=== PATIENT | female | born 1955 | race African-American/Black ===

== ENCOUNTER 2019-05-13 05:27 | Inpatient (IN) | payer MEDICAID ==
[~2019-05-13] VITALS: Ht 160 cm; Wt 50.7 kg
[~2019-05-13 05:27] MED LIST: AMLO2.5T4 PO; ASPI-728 PO; ATOR20TA86 PO; CLOP75TA3 PO; IPRA4AER IH; LEVO750T21 PO; LISI-662 PO; METO25 PO; PANT40TA25 PO
[2019-05-13] MEDS ORDERED: IPRATROPIUM BROMIDE 0.5 MG/2.5 ML NEB SOLUTION NEB ONE ×2 (05:45→08:15)
[2019-05-13] MEDS ORDERED: ALBUTEROL SULFATE 2.5 MG/0.5 ML NEB SOLUTION NEB ONE ×3 (05:45→10:15)
[2019-05-13 07:09] LABS: EOSINOPHILS % (AUTO) 0.4 % (1.0-6.0); HEMATOCRIT 38.4 % (36-46); HEMOGLOBIN 13.1 g/dL (12.0-16.0); LYMPHOCYTES # (AUTO) 0.5 K/uL (1.0-4.8); MEAN CORPUSCULAR HEMOGLOBIN 31.9 pg (26.0-34.0); MEAN CORPUSCULAR HGB CONC 34.1 G/dL (31.0-37.0); MEAN CORPUSCULAR VOLUME 94 fL (80-100); MONOCYTES # (AUTO) 0.5 K/uL (0.1-1.0); MONOCYTES % (AUTO) 11.9 % (2.0-9.0); NEUTROPHILS # (AUTO) 2.8 K/uL (1.8-7.7); NEUTROPHILS % (AUTO) 72.7 % (40.0-70.0); PLATELET COUNT (AUTO) 326 K/uL (150-450); RED CELL DISTRIBUTION WIDTH 16.5 % (11.5-14.5)
[2019-05-13 07:46] LABS: ALANINE AMINOTRANSFERASE 23 U/L (12-78); ALBUMIN 3.6 g/dL (3.4-5.0); ALKALINE PHOSPHATASE 155 U/L (46-116); ANION GAP 12 mmol/L (8-16); ASPARTATE AMINOTRANSFERASE 35 U/L (15-37); B-TYPE NATRIURETIC PEPTIDE 133 pg/mL (0-100); BILIRUBIN,TOTAL 0.5 mg/dL (0.1-1.0); CALCIUM, TOTAL 9.3 mg/dL (8.8-10.5); CARBON DIOXIDE 24 mmol/L (22-29); CHLORIDE 97 mmol/L (98-107); CREATININE 0.77 mg/dL (0.60-1.30); FREE T4 (FREE THYROXINE) 1.14 ng/dL (0.76-1.46); GLOMERULAR FILTR. RATE CALC > 60 mL/min (>60); GLUCOSE,RANDOM 103 mg/dL (70-110); SODIUM SERUM 133 mmol/L (136-145); TOTAL PROTEIN, SERUM 7.9 g/dL (6.4-8.2); UREA NITROGEN, BLOOD 14 mg/dL (7-18)
[2019-05-13] MEDS ORDERED: MethylPREDNISolone SOD SUCC 125 MG/2 ML VIAL IVP ONE (08:15)
[2019-05-13] MEDS ORDERED: IOVERSOL 350 MG/ML 100 ML VIAL ONE (08:17)
[2019-05-13] MEDS ORDERED: SODIUM CHLORIDE 0.9% 100 ML ONE (08:17)
[2019-05-13 08:58] LABS: INFLUENZA TYPE A NEGATIVE FOR TYPE A (NEGATIVE); INFLUENZA TYPE B NEGATIVE FOR TYPE B (NEGATIVE)
[2019-05-13] MEDS ORDERED: 0.9% SODIUM CHLORIDE 10 ML SYRINGE IVP PRN (10:15)
[2019-05-13] MEDS ORDERED: ACETAMINOPHEN 325 MG TABLET PO PRN ×2 (10:15→15:45)
[2019-05-13] MEDS ORDERED: ONDANSETRON HCL 4 MG/2 ML VIAL IVP PRN ×2 (10:15→15:45)
[2019-05-13] MEDS ORDERED: ALBUTEROL SULFATE 5 MG/ML 20 ML NEB SOLN [BULK] NEB ONE (10:30)
[2019-05-13] MEDS ORDERED: HydrALAZINE HCL 10 MG TABLET PO ONE (12:00)
[2019-05-13] MEDS ORDERED: POTASSIUM CHLORIDE 20 MEQ ER TABLET PO ONE (12:00)
[2019-05-13 12:49] VITALS: BP 134/74
[2019-05-13 15:35] VITALS: BP 137/77
[2019-05-13] MEDS ORDERED: ALBUTEROL SULFATE 2.5 MG/0.5 ML NEB SOLUTION NEB PRN (15:45)
[2019-05-13] MEDS ORDERED: MORPHINE SULFATE 2 MG/ML SYRINGE IVP PRN (15:45)
[2019-05-13] MEDS ORDERED: IPRATROPIUM BROMIDE 0.5 MG/2.5 ML NEB SOLUTION NEB PRN (15:45)
[2019-05-13] MEDS ORDERED: BISACODYL 10 MG RECTAL RECTAL SUPPOSITORY PR PRN (15:45)
[2019-05-13] MEDS ORDERED: ZOLPIDEM TARTRATE 5 MG TABLET PO PRN (15:45)
[2019-05-13] MEDS ORDERED: MAGNESIUM HYDROXIDE SUSPENSION 30 ML UDCUP PO PRN (15:45)
[2019-05-13] MEDS ORDERED: OxyCODONE HCL/ACETAMINOPHEN 5-325 MG TABLET PO PRN (15:45)
[2019-05-13] MEDS: MethylPREDNISolone SOD SUCC 125 MG/2 ML VIAL IVP SCH ×2 (17:09→23:13)
[2019-05-13] MEDS: HEPARIN SODIUM,PORCINE 5,000 UNITS/ML VIAL SQ SCH ×2 (17:09→23:14)
[2019-05-13] MEDS: ALBUTEROL SULFATE 2.5 MG/0.5 ML NEB SOLUTION NEB SCH ×2 (20:09→23:16)
[2019-05-13] MEDS: IPRATROPIUM BROMIDE 0.5 MG/2.5 ML NEB SOLUTION NEB SCH ×2 (20:09→23:16)
[2019-05-13 21:15] VITALS: BP 156/84
[2019-05-13] MEDS: METOPROLOL TARTRATE 25 MG TABLET PO SCH (21:16)
[2019-05-13] MEDS: DOCUSATE SODIUM 100 MG CAPSULE PO SCH (21:16)
[2019-05-14] VITALS (7 sets, daily range): BP systolic 147–161; BP diastolic 76–91
[2019-05-14] MEDS: ALBUTEROL SULFATE 2.5 MG/0.5 ML NEB SOLUTION NEB SCH ×6 (04:03→23:21)
[2019-05-14] MEDS: IPRATROPIUM BROMIDE 0.5 MG/2.5 ML NEB SOLUTION NEB SCH ×6 (04:03→23:21)
[2019-05-14] MEDS: MethylPREDNISolone SOD SUCC 125 MG/2 ML VIAL IVP SCH ×4 (06:34→23:34)
[2019-05-14] MEDS: LISINOPRIL 20 MG TABLET PO SCH (08:28)
[2019-05-14] MEDS: PANTOPRAZOLE SODIUM 40 MG DR TABLET PO SCH (08:28)
[2019-05-14] MEDS: DOCUSATE SODIUM 100 MG CAPSULE PO SCH ×2 (08:29→20:14)
[2019-05-14] MEDS: ASPIRIN 81 MG CHEWABLE TABLET PO SCH (08:29)
[2019-05-14] MEDS: ATORVASTATIN CALCIUM 20 MG TABLET PO SCH (08:29)
[2019-05-14] MEDS: METOPROLOL TARTRATE 25 MG TABLET PO SCH ×2 (08:29→20:13)
[2019-05-14] MEDS: CLOPIDOGREL BISULFATE 75 MG TABLET PO SCH (08:29)
[2019-05-14] MEDS: HEPARIN SODIUM,PORCINE 5,000 UNITS/ML VIAL SQ SCH ×3 (08:30→23:34)
[2019-05-14] MEDS: AmLODIPine BESYLATE 2.5 MG TABLET PO SCH (14:14)
[2019-05-14] MEDS: GuaiFENesin/D-METHORPHAN [SUGAR-FREE] 200-20MG/10 ML SYRUP UDCUP PO PRN (14:30)
[2019-05-14] MEDS ORDERED: INFLUENZA VIRUS VACCINE QVS 2019-20 (3YR+)/PF 60 MCG/0.5 ML SYRINGE IM ONE (19:15)
[2019-05-14] MEDS ORDERED: -PHARMACY VACCINE NOTE- MISC ONE (19:15)
[2019-05-15] MEDS: IPRATROPIUM BROMIDE 0.5 MG/2.5 ML NEB SOLUTION NEB SCH ×5 (03:06→20:12)
[2019-05-15] MEDS: ALBUTEROL SULFATE 2.5 MG/0.5 ML NEB SOLUTION NEB SCH ×5 (03:06→20:12)
[2019-05-15 04:00] VITALS: BP 149/86
[2019-05-15] MEDS: GuaiFENesin/D-METHORPHAN [SUGAR-FREE] 200-20MG/10 ML SYRUP UDCUP PO PRN ×2 (05:59→22:39)
[2019-05-15] MEDS: MethylPREDNISolone SOD SUCC 125 MG/2 ML VIAL IVP SCH ×4 (06:00→23:55)
[2019-05-15] MEDS: HEPARIN SODIUM,PORCINE 5,000 UNITS/ML VIAL SQ SCH ×3 (08:01→23:55)
[2019-05-15] MEDS: DOCUSATE SODIUM 100 MG CAPSULE PO SCH ×2 (08:01→20:36)
[2019-05-15] MEDS: ATORVASTATIN CALCIUM 20 MG TABLET PO SCH (08:01)
[2019-05-15] MEDS: AmLODIPine BESYLATE 2.5 MG TABLET PO SCH (08:03)
[2019-05-15] MEDS: CLOPIDOGREL BISULFATE 75 MG TABLET PO SCH (08:03)
[2019-05-15] MEDS: PANTOPRAZOLE SODIUM 40 MG DR TABLET PO SCH (08:03)
[2019-05-15] MEDS: METOPROLOL TARTRATE 25 MG TABLET PO SCH ×2 (08:03→20:36)
[2019-05-15] MEDS: ASPIRIN 81 MG CHEWABLE TABLET PO SCH (08:04)
[2019-05-15] MEDS: LISINOPRIL 20 MG TABLET PO SCH (08:05)
[2019-05-15 08:55] VITALS: BP 120/85
[2019-05-15 11:22] LABS: BASOPHILS % (AUTO) 0.1 % (0.0-2.0); EOSINOPHILS % (AUTO) 0.1 % (1.0-6.0); HEMOGLOBIN 12.6 g/dL (12.0-16.0); LYMPHOCYTES # (AUTO) 0.3 K/uL (1.0-4.8); LYMPHOCYTES % (AUTO) 2.4 % (22.0-44.0); MEAN CORPUSCULAR HEMOGLOBIN 30.9 pg (26.0-34.0); MEAN CORPUSCULAR HGB CONC 33.1 G/dL (31.0-37.0); MEAN CORPUSCULAR VOLUME 93 fL (80-100); MONOCYTES # (AUTO) 0.7 K/uL (0.1-1.0); MONOCYTES % (AUTO) 5.7 % (2.0-9.0); NEUTROPHILS # (AUTO) 11.6 K/uL (1.8-7.7); PLATELET COUNT (AUTO) 331 K/uL (150-450); RED BLOOD CELL COUNT(AUTO) 4.07 MIL/uL (4.00-5.20); RED CELL DISTRIBUTION WIDTH 16.5 % (11.5-14.5)
[2019-05-15 11:26] LABS: NEUTROPHILS % (AUTO) 91.7 % (40.0-70.0)
[2019-05-15 11:27] VITALS: BP 158/92
[2019-05-15 11:40] LABS: ANION GAP 9 mmol/L (8-16); CALCIUM, TOTAL 8.8 mg/dL (8.8-10.5); CARBON DIOXIDE 24 mmol/L (22-29); CHLORIDE 96 mmol/L (98-107); CREATININE 0.64 mg/dL (0.60-1.30); GLOMERULAR FILTR. RATE CALC > 60 mL/min (>60); GLUCOSE,RANDOM 130 mg/dL (70-110); SODIUM SERUM 129 mmol/L (136-145); UREA NITROGEN, BLOOD 13 mg/dL (7-18)
[2019-05-15 11:45] LABS: ALANINE AMINOTRANSFERASE 20 U/L (12-78); ALBUMIN 3.4 g/dL (3.4-5.0); ALKALINE PHOSPHATASE 133 U/L (46-116); ASPARTATE AMINOTRANSFERASE 32 U/L (15-37); BILIRUBIN,TOTAL 0.4 mg/dL (0.1-1.0); TOTAL PROTEIN, SERUM 7.4 g/dL (6.4-8.2)
[2019-05-15] MEDS: BENZONATATE 100 MG CAPSULE PO SCH ×3 (12:30→20:36)
[2019-05-15 15:59] VITALS: BP 132/82
[2019-05-15 20:38] VITALS: BP 170/99
[2019-05-16] VITALS (7 sets, daily range): BP systolic 118–165; BP diastolic 65–99
[2019-05-16] MEDS: ALBUTEROL SULFATE 2.5 MG/0.5 ML NEB SOLUTION NEB SCH ×7 (00:14→22:53)
[2019-05-16] MEDS: IPRATROPIUM BROMIDE 0.5 MG/2.5 ML NEB SOLUTION NEB SCH ×7 (00:14→22:53)
[2019-05-16] MEDS: MethylPREDNISolone SOD SUCC 125 MG/2 ML VIAL IVP SCH ×4 (06:01→22:56)
[2019-05-16 07:36] LABS: BASOPHILS % (AUTO) 0.1 % (0.0-2.0); EOSINOPHILS % (AUTO) 0.1 % (1.0-6.0); HEMOGLOBIN 13.5 g/dL (12.0-16.0); LYMPHOCYTES # (AUTO) 0.5 K/uL (1.0-4.8); LYMPHOCYTES % (AUTO) 4.5 % (22.0-44.0); MEAN CORPUSCULAR HEMOGLOBIN 31.6 pg (26.0-34.0); MEAN CORPUSCULAR HGB CONC 33.8 G/dL (31.0-37.0); MEAN CORPUSCULAR VOLUME 94 fL (80-100); MONOCYTES # (AUTO) 0.6 K/uL (0.1-1.0); MONOCYTES % (AUTO) 6.4 % (2.0-9.0); NEUTROPHILS # (AUTO) 8.9 K/uL (1.8-7.7); PLATELET COUNT (AUTO) 295 K/uL (150-450); RED BLOOD CELL COUNT(AUTO) 4.27 MIL/uL (4.00-5.20); RED CELL DISTRIBUTION WIDTH 16.4 % (11.5-14.5)
[2019-05-16 07:42] LABS: NEUTROPHILS % (AUTO) 88.9 % (40.0-70.0)
[2019-05-16 07:54] LABS: ALANINE AMINOTRANSFERASE 24 U/L (12-78); ALBUMIN 3.4 g/dL (3.4-5.0); ALKALINE PHOSPHATASE 137 U/L (46-116); ANION GAP 8 mmol/L (8-16); ASPARTATE AMINOTRANSFERASE 47 U/L (15-37); BILIRUBIN,TOTAL 0.4 mg/dL (0.1-1.0); CALCIUM, TOTAL 8.9 mg/dL (8.8-10.5); CARBON DIOXIDE 25 mmol/L (22-29); CHLORIDE 90 mmol/L (98-107); CREATININE 0.61 mg/dL (0.60-1.30); GLOMERULAR FILTR. RATE CALC > 60 mL/min (>60); GLUCOSE,RANDOM 116 mg/dL (70-110); POTASSIUM 4.2 mmol/L (3.5-5.1); TOTAL PROTEIN, SERUM 7.4 g/dL (6.4-8.2); UREA NITROGEN, BLOOD 12 mg/dL (7-18)
[2019-05-16 08:11] LABS: SODIUM SERUM 123 mmol/L (136-145)
[2019-05-16] MEDS: BENZONATATE 100 MG CAPSULE PO SCH ×3 (08:18→19:45)
[2019-05-16] MEDS: LISINOPRIL 20 MG TABLET PO SCH (08:18)
[2019-05-16] MEDS: ASPIRIN 81 MG CHEWABLE TABLET PO SCH (08:18)
[2019-05-16] MEDS: PANTOPRAZOLE SODIUM 40 MG DR TABLET PO SCH (08:18)
[2019-05-16] MEDS: ATORVASTATIN CALCIUM 20 MG TABLET PO SCH (08:18)
[2019-05-16] MEDS: AmLODIPine BESYLATE 2.5 MG TABLET PO SCH (08:18)
[2019-05-16] MEDS: METOPROLOL TARTRATE 25 MG TABLET PO SCH ×2 (08:18→19:45)
[2019-05-16] MEDS: CLOPIDOGREL BISULFATE 75 MG TABLET PO SCH (08:18)
[2019-05-16] MEDS: HEPARIN SODIUM,PORCINE 5,000 UNITS/ML VIAL SQ SCH ×3 (08:19→22:56)
[2019-05-16] MEDS: DOCUSATE SODIUM 100 MG CAPSULE PO SCH ×2 (08:19→19:45)
[2019-05-16] MEDS: GuaiFENesin/D-METHORPHAN [SUGAR-FREE] 200-20MG/10 ML SYRUP UDCUP PO PRN (10:00)
[2019-05-16] MEDS ORDERED: TOLVAPTAN 15 MG TABLET PO ONE (15:30)
[2019-05-17] MEDS ORDERED: DEXTROSE 5%-WATER 250 ML IV SCH ×2 (00:15)
[2019-05-17] MEDS ORDERED: DEXTROSE 5%-WATER 500 ML IV SCH (00:15)
[2019-05-17] MEDS: ALBUTEROL SULFATE 2.5 MG/0.5 ML NEB SOLUTION NEB SCH ×6 (02:44→22:45)
[2019-05-17] MEDS: IPRATROPIUM BROMIDE 0.5 MG/2.5 ML NEB SOLUTION NEB SCH ×6 (02:44→22:45)
[2019-05-17 05:24] VITALS: BP 132/77
[2019-05-17] MEDS: MethylPREDNISolone SOD SUCC 125 MG/2 ML VIAL IVP SCH ×5 (05:51→23:57)
[2019-05-17 07:39] VITALS: BP 132/72
[2019-05-17 07:58] LABS: BASOPHILS % (AUTO) 0.1 % (0.0-2.0); EOSINOPHILS % (AUTO) 0 % (1.0-6.0); HEMATOCRIT 39.1 % (36-46); HEMOGLOBIN 13.3 g/dL (12.0-16.0); LYMPHOCYTES # (AUTO) 0.4 K/uL (1.0-4.8); LYMPHOCYTES % (AUTO) 5.1 % (22.0-44.0); MEAN CORPUSCULAR HEMOGLOBIN 31.8 pg (26.0-34.0); MEAN CORPUSCULAR VOLUME 94 fL (80-100); MONOCYTES # (AUTO) 0.9 K/uL (0.1-1.0); MONOCYTES % (AUTO) 12.8 % (2.0-9.0); NEUTROPHILS # (AUTO) 5.8 K/uL (1.8-7.7); PLATELET COUNT (AUTO) 328 K/uL (150-450); RED BLOOD CELL COUNT(AUTO) 4.17 MIL/uL (4.00-5.20); RED CELL DISTRIBUTION WIDTH 16.4 % (11.5-14.5)
[2019-05-17] MEDS: HEPARIN SODIUM,PORCINE 5,000 UNITS/ML VIAL SQ SCH ×3 (08:07→23:56)
[2019-05-17 08:08] LABS: ALANINE AMINOTRANSFERASE 42 U/L (12-78); ALBUMIN 3.2 g/dL (3.4-5.0); ALKALINE PHOSPHATASE 127 U/L (46-116); ANION GAP 6 mmol/L (8-16); ASPARTATE AMINOTRANSFERASE 44 U/L (15-37); BILIRUBIN,TOTAL 0.2 mg/dL (0.1-1.0); CALCIUM, TOTAL 8.6 mg/dL (8.8-10.5); CARBON DIOXIDE 27 mmol/L (22-29); CHLORIDE 97 mmol/L (98-107); CREATININE 0.76 mg/dL (0.60-1.30); GLOMERULAR FILTR. RATE CALC > 60 mL/min (>60); GLUCOSE,RANDOM 144 mg/dL (70-110); POTASSIUM 3.8 mmol/L (3.5-5.1); SODIUM SERUM 130 mmol/L (136-145); TOTAL PROTEIN, SERUM 6.9 g/dL (6.4-8.2); UREA NITROGEN, BLOOD 15 mg/dL (7-18)
[2019-05-17] MEDS: DOCUSATE SODIUM 100 MG CAPSULE PO SCH ×2 (08:08→20:43)
[2019-05-17] MEDS: METOPROLOL TARTRATE 25 MG TABLET PO SCH ×2 (08:08→20:43)
[2019-05-17] MEDS: BENZONATATE 100 MG CAPSULE PO SCH ×3 (08:08→20:43)
[2019-05-17] MEDS: PANTOPRAZOLE SODIUM 40 MG DR TABLET PO SCH (08:08)
[2019-05-17] MEDS: AmLODIPine BESYLATE 2.5 MG TABLET PO SCH (08:08)
[2019-05-17] MEDS: CLOPIDOGREL BISULFATE 75 MG TABLET PO SCH (08:08)
[2019-05-17] MEDS: LISINOPRIL 20 MG TABLET PO SCH (08:08)
[2019-05-17] MEDS: ATORVASTATIN CALCIUM 20 MG TABLET PO SCH (08:09)
[2019-05-17] MEDS: ASPIRIN 81 MG CHEWABLE TABLET PO SCH (08:09)
[2019-05-17] MEDS ORDERED: TOLVAPTAN 15 MG TABLET PO ONE (09:30)
[2019-05-17 11:33] VITALS: BP 138/75
[2019-05-17] MEDS: GuaiFENesin/D-METHORPHAN [SUGAR-FREE] 200-20MG/10 ML SYRUP UDCUP PO PRN (11:45)
[2019-05-17] MEDS ORDERED: BENZ-51 PO (13:35)
[2019-05-17] MEDS ORDERED: PRED5 PO ×3 (13:38→13:45)
[2019-05-17] MEDS ORDERED: PRED10TA3 PO (13:46)
[2019-05-17 15:19] VITALS: BP 145/90
[2019-05-17 19:52] VITALS: BP 126/73
[2019-05-17 23:48] VITALS: BP 134/75
[2019-05-18] MEDS: ALBUTEROL SULFATE 2.5 MG/0.5 ML NEB SOLUTION NEB SCH ×2 (03:03→06:58)
[2019-05-18] MEDS: IPRATROPIUM BROMIDE 0.5 MG/2.5 ML NEB SOLUTION NEB SCH ×2 (03:03→06:58)
[2019-05-18 04:31] VITALS: BP 163/89
[2019-05-18] MEDS: MethylPREDNISolone SOD SUCC 125 MG/2 ML VIAL IVP SCH (05:51)
[2019-05-18 07:49] LABS: BASOPHILS % (AUTO) 0.1 % (0.0-2.0); EOSINOPHILS % (AUTO) 0 % (1.0-6.0); HEMATOCRIT 38.5 % (36-46); LYMPHOCYTES # (AUTO) 0.6 K/uL (1.0-4.8); LYMPHOCYTES % (AUTO) 6.3 % (22.0-44.0); MEAN CORPUSCULAR HEMOGLOBIN 31.6 pg (26.0-34.0); MEAN CORPUSCULAR HGB CONC 33.7 G/dL (31.0-37.0); MEAN CORPUSCULAR VOLUME 94 fL (80-100); MONOCYTES % (AUTO) 10.7 % (2.0-9.0); NEUTROPHILS # (AUTO) 7.5 K/uL (1.8-7.7); NEUTROPHILS % (AUTO) 82.9 % (40.0-70.0); PLATELET COUNT (AUTO) 307 K/uL (150-450); RED CELL DISTRIBUTION WIDTH 16.3 % (11.5-14.5)
[2019-05-18 08:03] LABS: ALANINE AMINOTRANSFERASE 87 U/L (12-78); ALBUMIN 2.9 g/dL (3.4-5.0); ALKALINE PHOSPHATASE 120 U/L (46-116); ANION GAP 8 mmol/L (8-16); ASPARTATE AMINOTRANSFERASE 92 U/L (15-37); BILIRUBIN,TOTAL 0.3 mg/dL (0.1-1.0); CALCIUM, TOTAL 8.6 mg/dL (8.8-10.5); CARBON DIOXIDE 26 mmol/L (22-29); CHLORIDE 100 mmol/L (98-107); CREATININE 0.69 mg/dL (0.60-1.30); GLOMERULAR FILTR. RATE CALC > 60 mL/min (>60); GLUCOSE,RANDOM 105 mg/dL (70-110); POTASSIUM 4.1 mmol/L (3.5-5.1); SODIUM SERUM 134 mmol/L (136-145); TOTAL PROTEIN, SERUM 6.4 g/dL (6.4-8.2)
[2019-05-18 08:11] LABS: UREA NITROGEN, BLOOD 22 mg/dL (7-18)
[2019-05-18 08:12] VITALS: BP 156/88
[2019-05-18] MEDS: METOPROLOL TARTRATE 25 MG TABLET PO SCH (08:55)
[2019-05-18] MEDS: AmLODIPine BESYLATE 2.5 MG TABLET PO SCH (08:55)
[2019-05-18] MEDS: CLOPIDOGREL BISULFATE 75 MG TABLET PO SCH (08:55)
[2019-05-18] MEDS: BENZONATATE 100 MG CAPSULE PO SCH (08:55)
[2019-05-18] MEDS: LISINOPRIL 20 MG TABLET PO SCH (08:55)
[2019-05-18] MEDS: PANTOPRAZOLE SODIUM 40 MG DR TABLET PO SCH (08:55)
[2019-05-18] MEDS: HEPARIN SODIUM,PORCINE 5,000 UNITS/ML VIAL SQ SCH (08:55)
[2019-05-18] MEDS: ASPIRIN 81 MG CHEWABLE TABLET PO SCH (08:56)
[2019-05-18] MEDS: ATORVASTATIN CALCIUM 20 MG TABLET PO SCH (08:56)
[2019-05-18] MEDS: DOCUSATE SODIUM 100 MG CAPSULE PO SCH (08:56)
[2019-05-18] MEDS ORDERED: PredniSONE 20 MG TABLET PO ONE (09:00)
[2019-05-18] MEDS ORDERED: TOLVAPTAN 15 MG TABLET PO ONE (11:15)
[2019-05-18 11:47] VITALS: BP 148/82
== END 2019-05-18 13:03 | disposition home or self-care (01) | DRG 140 ==
LOC: EMS 05:28 → 6N 12:07
PROVIDERS: ADMIT Internal Medicine; ATTEND Internal Medicine
DX: J44.1 Chronic obstructive pulmonary disease with (acute) exacerbation (principal); E22.2 Syndrome of inappropriate secretion of antidiuretic hormone; E46 Unspecified protein-calorie malnutrition; I31.3 Pericardial effusion (noninflammatory); Z99.81 Dependence on supplemental oxygen; C34.11 Malignant neoplasm of upper lobe, right bronchus or lung; I10 Essential (primary) hypertension; F12.90 Cannabis use, unspecified, uncomplicated; R59.0 Localized enlarged lymph nodes; F17.210 Nicotine dependence, cigarettes, uncomplicated; E87.6 Hypokalemia; E78.5 Hyperlipidemia, unspecified; I25.10 Atherosclerotic heart disease of native coronary artery without angina pectoris; Z79.82 Long term (current) use of aspirin; Z79.899 Other long term (current) drug therapy; Z68.1 Body mass index [BMI] 19.9 or less, adult; Z95.5 Presence of coronary angioplasty implant and graft
CPT/HCPCS: 71275; 84132; 84295; 84439; 84443; 85379; 87804; 90686; 93005; 94640; 94644; J1644; J2930; J7050; J7060